=== PATIENT | female | born 1960 | race Two or more races ===

== ENCOUNTER 2020-01-05 17:24 | Inpatient (IN) | payer OTHER ==
[~2020-01-05] VITALS: Ht 167.6 cm; Wt 96.6 kg
--- NOTE | 2020-01-05 18:00 | NUR ---
dizziness, vomiting x 3 days s/p glf. was told by pmd to go to ED eval. Patient a/ox4, breathing even and unlabored, no sob noted, needs attended. Attached to the electronic device monitor.
[2020-01-05] MEDS ORDERED: ONDANSETRON HCL/PF 4 MG/2 ML VIAL ONE (18:05)
[2020-01-05] MEDS ORDERED: IV NS 0.9% 1,000 ML BAG IV ONE (18:30)
[2020-01-05] MEDS ORDERED: ONDANSETRON HCL/PF 4 MG/2 ML VIAL IVP ONE (18:30)
[2020-01-05 18:41] LABS: BASOPHILS % (AUTO) 0.4 % (0.0-2.0); EOSINOPHILS % (AUTO) 0.9 % (0.0-6.0); HEMATOCRIT 40 % (33-45); HEMOGLOBIN 13.4 g/dL (11.5-14.8); MEAN CORPUSCULAR HGB CONC 34 g/dl (31.0-36.0); MEAN CORPUSCULAR VOLUME 93 fL (82-100); MONOCYTES # (AUTO) 0.4 /CMM (0.1-1.30); MONOCYTES % (AUTO) 8.6 % (2.0-12.0); NEUTROPHILS # (AUTO) 2.5 /CMM (1.8-8.9); NEUTROPHILS % (AUTO) 50.1 % (43.0-81.0); PLATELET COUNT (AUTO) 245 /CMM (150-450); RED BLOOD CELL COUNT(AUTO) 4.24 MIL/uL (4.0-5.2); WHITE BLOOD COUNT (AUTO) 4.9 K/uL (4.3-11.0)
[2020-01-05 18:51] LABS: CALCIUM, SERUM 8.8 mg/dL (8.5-10.1); CARBON DIOXIDE 28 mmol/L (21-32); CHLORIDE 106 mmol/L (98-107); CREATININE 0.8 mg/dL (0.6-1.3); GLUCOSE 100 mg/dL (74-106); POTASSIUM 3.8 mmol/L (3.5-5.1); SODIUM SERUM 142 mmol/L (136-145); UREA NITROGEN, BLOOD 12 mg/dL (7-18)
[2020-01-05 18:58] LABS: ALANINE AMINOTRANSFERASE 24 U/L (12-78); ALKALINE PHOSPHATASE 63 U/L (46-116); ASPARTATE AMINOTRANSFERASE 17 U/L (15-37); BILIRUBIN,DIRECT 0.1 mg/dL (0.0-0.2); BILIRUBIN,TOTAL 0.3 mg/dL (0.2-1.0); TOTAL PROTEIN, SERUM 7.7 g/dL (6.4-8.2)
--- NOTE | 2020-01-05 19:22 | NUR ---
CALLED LAB SPOKE TO PAUL FOR RAPID COVID SWAB
--- NOTE | 2020-01-05 19:22 | NUR ---
REPORT GIVEN TO RANDY HAYES FOR RAHEEM.
--- NOTE | 2020-01-05 19:25 | NUR ---
RECEIVED REPORT FROM NORMAN. VITAL SIGNS TAKEN. BP- 114/66, HR- 71, RR- 18, O2 SAT 100%, BREATHING AT ROOM AIR, NO SIGNS OF DISTRESS, IV ACCESS ON LEFT AC. PATIENT IS ARMAINIAN SPEAKING.
--- NOTE | 2020-01-05 19:47 | NUR ---
COVID SWAB COLLECTED AND SENT TO LAB.
--- NOTE | 2020-01-05 20:02 | NUR ---
PATIENT COMPLAINS OF PAIN AT THE BACK OF HER HEAD AND NECK. WITH A PAIN SCALE OF 8. INFORMED DR. TAYLOR.
[2020-01-05] MEDS ORDERED: MORPHINE SULFATE INJ 4 MG/ML DISP.SYRIN ONE (20:05)
--- NOTE | 2020-01-05 20:16 | NUR ---
MORPHINE 4MG IV GIVEN. BP- 137/72, HR- 72, O2 SAT- 100%.
--- NOTE | 2020-01-05 20:28 | NUR ---
CALLED NURSING SUP FOR BED
[2020-01-05] MEDS ORDERED: ONDANSETRON HCL/PF 4 MG/2 ML VIAL IV ONE (20:30)
[2020-01-05] MEDS ORDERED: MORPHINE SULFATE INJ 2 MG/ML DISP.SYRIN IV ONE (20:30)
--- NOTE | 2020-01-05 20:48 | NUR ---
URINE COLLECTED AND SENT TO LAB.
--- NOTE | 2020-01-05 20:49 | NUR ---
PAIN SCALE IS 6. BP- 142/91, HR- 70. O2 SAT 100%.
--- NOTE | 2020-01-05 20:52 | NUR ---
BED ASSIGNMENT 200
--- NOTE | 2020-01-05 21:03 | NUR ---
ENDORSED PATIENT TO [facility] FOR CONTINUITY OF CARE.
[2020-01-05 21:12] LABS: APPEARANCE,URINE Clear (CLEAR); BILIRUBIN,URINE Negative (NEGATIVE); BLOOD, URINE Trace-intact Ery/uL (NEGATIVE); COLOR,URINE Yellow (YELLOW); KETONES,URINE Negative (NEGATIVE); LEUKOCYTE ESTERASE ,URINE Small (NEGATIVE); NITRITE, URINE Negative (NEGATIVE); PH,URINE 6.5 (5.0-8.0); PROTEIN,URINE Negative (NEGATIVE); UGLUCOSE Negative (NEGATIVE); UROBILINOGEN,URINE 0.2 EU/dL (0.2)
--- NOTE | 2020-01-05 21:30 | NUR ---
PATIENT TRANSFERED TO [facility] VIA [facility].
[2020-01-05 21:35] LABS: BACTERIA,URINE Few /HPF (None Seen); MUCUS,URINE Few /LPF (None Seen); SQUAMOUS EPITHELIAL CELL,UR Few /HPF (None Seen); URINE AMORPHOUS URATE Few /HPF (None Seen)
--- NOTE | 2020-01-05 21:40 | NUR ---
ADMISSION NOTES: RECEIVED REPORT FROM ZEN ALCAZAR RN. PT BROUGHT TO THE UNIT AT 2132 VIA GURNEY. PT A/O X4 ON RA RESPIRATIONS EVEN AND UNLABORED, IV ACCESS PATENT AND FLUSHING WELL, ON HL. VS TAKEN AND RECORDED. ORIENTED PT TO UNIT POLICY AND HOURLY ROUNDING , USE OF CALL LIGHT SYSTEM. PT ABLE TO UNDERSTAND AND SPEAK BASIC LITHUANIAN, ABLE TO MAKE NEEDS KNOWN. STILL C/O OF HEAD AND NECK PAIN 12/17. SKIN ASSESSMENT PERFORMED, NO SKIN ISSUES NOTED. ALL INTERVIEW QUESTIONS ANSWERED BY PT HERSELF, DENIES ANY MEDICATION TAKEN AT HOME. INVENTORY OF BELONGINGS COMPLETED BY JUDITH RAHMAN AND RN. PT REFUSED TO COUNT HER MONEY AND BE KEPT ON SAFE, EDUCATION PROVIDED TO PT. SAFETY PRECAUTIONS FOR FALL INITIATED, CALL LIGHT IN REACH, WILL CONTINUE MONITORING PT.
[2020-01-05 21:48] VITALS: BP 131/76
[2020-01-05] MEDS ORDERED: [UNRECOGNIZED DRUG - REMARK] (21:48)
--- NOTE | 2020-01-05 21:50 | NUR ---
RN NOTES/MD CALL: CONTACTED DR MCLEOD FOR ADMITTING ORDERS, PER MD, HOSPITALIST WILL ADMIT THE PT. INFORMED EPIC MD DR SLADE, STATED SHE WILL PUT IN ALL ORDERS FOR THE PT. ALSO INFORMED MD ABOUT PT'S C/O PAIN IN HER HEAD AND NECK.
[2020-01-05 22:00] VITALS: BP 131/76
--- NOTE | 2020-01-05 22:10 | NUR ---
RN NOTES/EPIC MD: NOTIFIED EPIC HOSPITALIST REGARDING PT'S C/O 8/10 PAIN ON HEAD AND NECK AREA, PT RECEIVED MORPHINE 2MG IVP AT 2015 IN ER. PER MD TELEPHONE ORDER RECEIVED TO ADMINISTER NORCO 5/325 MG TAB PO Q4HRS PRN FOR PAIN/MOD PAIN 4-7. MD AWARE P'S PAIN LEVEL IS 8/10. ORDERS READ BACK VERIFIED AND CARRIED OUT.
[2020-01-05] MEDS ORDERED: HYDROCODONE/APAP 5/325MG TABLET PO PRN (22:30)
--- NOTE | 2020-01-05 22:33 | NUR ---
PRN NORCO: PT C/O 8/10 PAIN ON HEAD AND NECK AREA, MD AWARE OF PT'S PAIN SCALE, PRN NORCO 5/325 MG TAB PO ADMINISTERED FOR PT'S PAIN. EDUCATE PT REGARDING MEDICATION SIDE EFFECT. WILL CONTINUE MONITORING PT.
[2020-01-05] MEDS ORDERED: MAG HYDROX/AL HYDROX/SIMETH 30 ML UDC PO PRN (23:00)
[2020-01-05] MEDS ORDERED: MAGNESIUM HYDROXIDE 30 ML UDC PO PRN (23:00)
[2020-01-05] MEDS ORDERED: ACETAMINOPHEN 325 MG TABLET PO PRN (23:00)
[2020-01-05] MEDS ORDERED: Z GUARD REMEDY 2 OZ OINT TP PRN (23:00)
[2020-01-05] MEDS ORDERED: ONDANSETRON HCL/PF 4 MG/2 ML VIAL IVP PRN (23:00)
[2020-01-05] MEDS ORDERED: ZOLPIDEM TARTRATE 5 MG TABLET PO PRN (23:00)
--- NOTE | 2020-01-05 23:30 | NUR ---
rn notes: pt complaining room is hot, contacted engineering to check room's temp/thermostat. also requested for fan from evs.
--- NOTE | 2020-01-05 23:34 | NUR ---
rn notes: obtain permission from sammie hilton regarding use of fan on room 200, pt c/o its hot in the room, current temp is 65 per engineering. engineering will bring fan for the pt. pt afebrile, no fever. temp 98.6.
[2020-01-05] MEDS: IV D5/0.45 NACL 1,000 ML IV PRN (23:39)
--- NOTE | 2020-01-05 23:43 | NUR ---
rn notes: dr brown came to see the pt. also ordered Fioricet tab 8hrs prn for sever pain 8-10 and migraine. order read back verified and carried out. per md to keep pt npo due to n/v episode, but okay to give sips of water for meds.
--- NOTE | 2020-01-05 23:46 | NUR ---
rn notes: md still in the unit, per md to do accu checks, mild sliding scale. order read back verified and carried out.
--- NOTE | 2020-01-05 23:52 | NUR ---
accu check 102: blood sugar check performed and result obtained is 102. no insulin coverage given per sliding scale.
[2020-01-06] MEDS ORDERED: DEXTROSE 50%-WATER 50 ML DISP.SYRIN IV PRN
[2020-01-06] MEDS ORDERED: BUTALB/APAP/CAFFEINE 1 EACH TABLET PO PRN
--- NOTE | 2020-01-06 00:43 | NUR ---
rn notes/epic paged: notified epic about fioricet tablet not available in any omnicel, either cunha out or showing med not issue. per md telephone order received to administer robaxin 500 po tid schedule to start now. to be administer with sips of water. order read back, verified and carried out.
[2020-01-06] MEDS: METHOCARBAMOL (500MG) 500 MG TABLET PO SCH ×4 (01:09→17:00)
[2020-01-06 02:15] VITALS: BP 133/88
[2020-01-06] MEDS: HYDROCODONE/APAP 5/325MG TABLET PO PRN ×3 (02:37→13:42)
--- NOTE | 2020-01-06 02:38 | NUR ---
prn norco: pt c/o 11/16 head and neck pain prn norco 5/325 mg 5tab po administered to pt at this time, will continue to monitor and reassess pt.
[2020-01-06] MEDS: BLOOD SUGAR DIAGNOSTIC 1 EACH STRIP IN SCH ×4 (06:26→21:40)
[2020-01-06] MEDS: IV D5/0.45 NACL 1,000 ML IV PRN ×2 (06:26→16:48)
[2020-01-06] MEDS: INSULIN REGULAR, HUMAN 100 UNIT/ML 3 ML VIAL SQ PRN ×2 (06:27→21:45)
--- NOTE | 2020-01-06 06:28 | NUR ---
accu check 98/prn norco: pt c/o head and neck pain, 11/16 requesting for pain medication. prn norco 5/325 mg tab po administered at this time. blood sugar check performed and result obtained is 98, no insulin coverage given per sliding scale.
--- NOTE | 2020-01-06 07:06 | NUR ---
End of shift report: Pt remains a/o x4, on ra, denies any sob. Pt referred to wear surgical mask and face shield. Prn norco administered for c/o head and neck pain. Pt was started on robaxin 500 mg po for muscle spasm. Remains npo per md order, iv access patent and flushing well, infusing with d5 ns at 125ml/hr, no s/s of iv infiltration noted. No episode of n/v noted throughout the shift. Vs remains stable. Needs attended. PLAN OF CARE: NEURO CONSULT WITH DR OMALLEY for possible mri brain, iv hydration, pain management. Safety precautions for fall remains engaged light in reach, will endorse to day rn for continuity of care.
[2020-01-06 07:36] LABS: BASOPHILS % (AUTO) 0.6 % (0.0-2.0); EOSINOPHILS % (AUTO) 1.8 % (0.0-6.0); HEMATOCRIT 37 % (33-45); HEMOGLOBIN 12.5 g/dL (11.5-14.8); LYMPHOCYTES % (AUTO) 53.5 % (20.0-44.0); MEAN CORPUSCULAR HGB CONC 34 g/dl (31.0-36.0); MEAN CORPUSCULAR VOLUME 94 fL (82-100); MONOCYTES # (AUTO) 0.3 /CMM (0.1-1.30); MONOCYTES % (AUTO) 8.2 % (2.0-12.0); NEUTROPHILS # (AUTO) 1.4 /CMM (1.8-8.9); NEUTROPHILS % (AUTO) 35.9 % (43.0-81.0); PLATELET COUNT (AUTO) 198 /CMM (150-450); RED BLOOD CELL COUNT(AUTO) 3.97 MIL/uL (4.0-5.2); WHITE BLOOD COUNT (AUTO) 3.8 K/uL (4.3-11.0)
[2020-01-06 07:43] LABS: CREATININE 0.7 mg/dL (0.6-1.3); MAGNESIUM 1.9 mg/dL (1.8-2.4); PHOSPHORUS 3.3 mg/dL (2.5-4.9); POTASSIUM 3.4 mmol/L (3.5-5.1)
[2020-01-06 07:55] LABS: THYROID STIMULATING HORMONE 11.041 uIU/mL (0.358-3.74)
[2020-01-06 07:58] VITALS: BP 120/71
--- NOTE | 2020-01-06 07:59 | NUR ---
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 A/O X4, vital signs within normal range for patient, no fever noted. Continue to complain of headache 12/17, medication administered as ordered. Awaitng neuro consult with Dr De La Cruz, for possible MRI. Safety measures in place, bed in low setting, side rails X2 in upright position, brakes locked. Call light within reach, will continue to monitor and ensure safety.
[2020-01-06 08:18] VITALS: BP 120/71
--- NOTE | 2020-01-06 08:30 | NUR ---
MS/fraud representative refusal Patient refused to take any of the pain medications ordered for her, stating that they do not work. Wanting to wait for neurology consult before taking anything.
--- NOTE | 2020-01-06 09:45 | NUR ---
MS/RN Dr De La Cruz Call received from Dr De La Cruz - requesting assistance with telemedicine consult, indicated to MD that we would ask automotive parts interpreter to come and translate as patient's primary language is Indian. Attendant Coin Operated Laundry at bedside, attempted to video chat with MD, but no response. Attempted twice, also tried calling via regular landline without any answer. Noted short time after order entered into computer for stat CT head. Patient informed and prepared for test.
--- NOTE | 2020-01-06 10:30 | NUR ---
MS/RN PT tristen Seen by PT - able to ambulate with standby assist using walker. Patient discharged from physical therapy.
[2020-01-06] MEDS ORDERED: MECL-159 PO (10:43)
[2020-01-06] MEDS ORDERED: OXYC30TA2 PO (10:43)
[2020-01-06] MEDS ORDERED: ALOG25TA2 PO (10:43)
[2020-01-06] MEDS ORDERED: RIVA10TA PO (10:43)
[2020-01-06] MEDS ORDERED: ALPR1TAB7 PO (10:43)
[2020-01-06] MEDS ORDERED: ROSU40TA23 PO (10:43)
[2020-01-06] MEDS ORDERED: FENO134C PO (10:43)
[2020-01-06] MEDS ORDERED: INSU100I26 SQ (10:43)
[2020-01-06] MEDS ORDERED: DOCU-270 PO (10:43)
[2020-01-06] MEDS ORDERED: ASPI-1420 PO (10:43)
[2020-01-06] MEDS ORDERED: ERGO500014 PO (10:43)
[2020-01-06] MEDS ORDERED: METO25TA20 PO (10:43)
[2020-01-06] MEDS ORDERED: OMEP40CA13 PO (10:43)
[2020-01-06] MEDS ORDERED: TIOT4MIS2 INH (10:43)
[2020-01-06] MEDS ORDERED: SITA100T PO (10:43)
[2020-01-06] MEDS ORDERED: SENN-148 PO (10:43)
--- NOTE | 2020-01-06 11:45 | NUR ---
MS/RN CT Head CT scan of head reported as dense extra axial hematoma measuring 4mm over left frontal convexity.
[2020-01-06] MEDS: POTASSIUM CL. PREMIX PERIPHER. 50 ML IV SCH ×2 (11:49→12:49)
--- NOTE | 2020-01-06 12:35 | NUR ---
MS/RN Dr Rothman Per MD - patient to remain in the hospital overnight and possible repeat CT scan in morning.
[2020-01-06 16:00] VITALS: BP 113/65
[2020-01-06 16:02] VITALS: BP 113/65
[2020-01-06] MEDS: MORPHINE SULFATE INJ 2 MG/ML DISP.SYRIN IV PRN ×2 (17:17→21:44)
--- NOTE | 2020-01-06 18:05 | NUR ---
MS/RN End note Patient resting comfortably at this time following administration of morphine 2mg, no further episodes of nausea or vomiting. IV fluids continue to infuse at 125ml/hr via left AC 20g, no signs of infiltration. For repeat CT scan head tomorrow to further evaluate 4mm hematoma on left frontal convexity. All questions and concerns addressed, family updated at patient's request to plan of care. Patient's primary contact is son Chan ([phone] Will endorse to night cleaner.
--- NOTE | 2020-01-06 19:30 | NUR ---
rn initial notes: Patient received from day shift. Pt is a/o x4, stated her pain is tolerable at this time, as she just received morphine, ps 4/10. IV access on left ac patent and flushing well, infusing with d5 1/2 ns at 125ml/hr. For repeat ct head in am. Discussed plan of care to pt. Safety measures in place, bed in low setting, side rails X2 in upright position, brakes locked. Call light within reach, will continue to monitor and ensure safety.
[2020-01-06 20:00] VITALS: BP 110/72
--- NOTE | 2020-01-06 21:00 | NUR ---
accu check 102: blood sugar check performed and result 102. no insulin coverage given per sliding scale.
--- NOTE | 2020-01-06 21:02 | NUR ---
mica hernandes: pt requesting for sleeping pill, mica hernandes 10 mg tab po administered to pt at this time. Addendum: 01/06/20 at 2139 by BRITTA FIGUEROA RN disregard above documentation, wrong entry
--- NOTE | 2020-01-06 21:05 | NUR ---
transfer of care notes: Tolerated regular diet, no episode of nausea or vomiting. Pt refused taking any of the medication pill, stated its not helping with her pain. IVF infusing at 125ml/hr via left ac. No s/s of iv infiltration noted. For repeat CT head today. Vs remains stable, no fever noted. Safety precautions for fall remains engaged, call light in reach, endorsed to [facility] rn for continuity of care.
--- NOTE | 2020-01-06 21:10 | NUR ---
TRANSFER OF CARE RECEIVE PT FROM MS 2 VIA BED ACCOMPANIED BY PRIMARY NURSE PT A/O X 4, STABLE CONDITION COMPLAIN OF PAIN LOWER BACK NON PHARMACOLOGICAL IMPLEMENTED, ALL BELONGINGS WITH THE PT. KEPT CLEAN, DRY AND COMFORTABLE.SAFETY MEASURES IN PLACE. WILL ENDORSE TO NEXT SHIFT Addendum: 01/07/20 at 0230 by CARLTON COTO RN will cont to monitor
--- NOTE | 2020-01-06 22:01 | NUR ---
transfer of care notes: No c/o abdl pain, no fever, no episode of nausea or vomiting, no prn medication administered. IVF remains infusing ns at 150ml/hr via left fa, no s/s of iv infiltration noted. Dc planning per hospitalist when pt tolerated diet, trend lipase, outpt gi follow up, pt requesting prescription for protonix upon discharge. Vs remains stable, needs attended. Safety precautions for fall remains engaged, call light in reach, endorsed to [facility] rn for continuity of care. Addendum: 01/07/20 at 0033 by BRITTA FIGUEROA RN DISREGARD ABOVE DOCUMENTATION, WRONG ENTRY
[2020-01-07] MEDS ORDERED: MORPHINE SULFATE INJ 2 MG/ML DISP.SYRIN ONE (02:03)
[2020-01-07] MEDS: IV D5/0.45 NACL 1,000 ML IV PRN (02:04)
[2020-01-07] MEDS: MORPHINE SULFATE INJ 2 MG/ML DISP.SYRIN IV PRN (02:05)
--- NOTE | 2020-01-07 06:04 | NUR ---
MS RN ASLEEP AND EASILY AWAKEN, IN NO APPARENT DISTRESS, SLEPT WELL, NEEDS ATTENDED AND ANTICIPATED, KEPT CLEAN, DRY AND COMFORTABLE AT ALL TIMES. AM CARE RENDERED, MONITORED ACCORDINGLY, PT A/O X 4, SAFETY MEASURES IN PLACE. WILL ENDORSE TO NEXT SHIFT.
[2020-01-07] MEDS: BLOOD SUGAR DIAGNOSTIC 1 EACH STRIP IN SCH ×2 (06:25→11:34)
[2020-01-07] MEDS: INSULIN REGULAR, HUMAN 100 UNIT/ML 3 ML VIAL SQ PRN (06:25)
--- NOTE | 2020-01-07 07:30 | NUR ---
RN MS NOTES PT IN BED, AWAKE, ALERT AND ORIENTED, STILL WITH COMPLAINT OF SOME PAIN TO HER NECK AND HEAD, PT ABLE TO AMBULATE TO THE BATHROOM WITH STEADY GAIT, NOT IN DISTRESS, CALL LIGHT WITHIN REACH, NEEDS ATTENDED.
[2020-01-07 07:37] LABS: CALCIUM, SERUM 8.4 mg/dL (8.5-10.1); CREATININE 0.7 mg/dL (0.6-1.3); POTASSIUM 3.7 mmol/L (3.5-5.1)
[2020-01-07 08:00] VITALS: BP 129/69
--- NOTE | 2020-01-07 08:53 | NUR ---
RN MS NOTES PT SEEN BY DR. PRIETO, DISCHARGE INSTRUCTIONS GIVEN BY , VERBALIZED UNDERSTANDING.
[2020-01-07] MEDS: METHOCARBAMOL (500MG) 500 MG TABLET PO SCH (09:29)
[2020-01-07] MEDS ORDERED: METH500T6 PO (09:54)
--- NOTE | 2020-01-07 12:15 | NUR ---
RN MS NOTES PT COMPLETED CT HEAD WITHOUT CONTRAST WITH NEGATIVE RESULTS, DISCHARGE ORDER GIVEN BY DR. PRIETO, DISCHARGE AND MEDICATION INSTRUCTIONS PROVIDED TO PT. VERBALIZED UNDERSTANDING, PT ABLE TO AMBULATE IN HER ROOM WITH STEADY GAIT, BELONGINGS ACCOUNTED FOR, ASSISTED TO WHEELCHAIR, ASSISTED TO HOSPITAL LOBBY, PICKED UP BY SON, LEFT VIA PRIVATE CAR IN STABLE CONDITION.
== END 2020-01-07 12:15 | disposition home or self-care (01) | DRG 57 ==
LOC: ER 17:28 → MEDSG2 20:57 → MED 01-06 21:10
PROVIDERS: ADMIT Student in an Organized Health Care Education/Training Program; ATTEND Internal Medicine
DX: S06.2X9A Diffuse traumatic brain injury with loss of consciousness of unspecified duration, initial encounter (principal); S13.4XXA Sprain of ligaments of cervical spine, initial encounter; Y92.9 Unspecified place or not applicable; E11.9 Type 2 diabetes mellitus without complications; G89.29 Other chronic pain; Z90.49 Acquired absence of other specified parts of digestive tract; W19.XXXA Unspecified fall, initial encounter; E03.9 Hypothyroidism, unspecified; F07.81 Postconcussional syndrome
CPT/HCPCS: 36415; 70450-TC; 80048-TC; 80061-TC; 80076-TC; 81000-TC; 82962-TC; 83735-TC; 84100-TC; 84443-TC; 84484-TC; 85025-TC; 85730-TC; 87081-TC; 87086-TC; 97116-TC; 97530-TC; C9803-CS; G0378; J1815; J2270; J2405; J3490; J7030

== ENCOUNTER 2020-01-08 13:45 | Emergency (ER) | payer OTHER ==
[~2020-01-08] VITALS: Ht 167.6 cm; Wt 93.0 kg
[~2020-01-08 13:45] MED LIST: ALOG25TA2 PO; ALPR1TAB7 PO; DOCU-270 PO; ERGO500014 PO; FENO134C PO; INSU100I26 SQ; MECL-159 PO; METH500T6 PO; METO25TA20 PO; OMEP40CA13 PO; OXYC30TA2 PO; ROSU40TA23 PO; SENN-148 PO; SITA100T PO; TIOT4MIS2 INH
--- NOTE | 2020-01-08 13:52 | NUR ---
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
--- NOTE | 2020-01-08 14:38 | NUR ---
DR BORDEN AT BEDSIDE FOR EVAL.
[2020-01-08] MEDS ORDERED: ONDANSETRON 4 MG TAB.RAPDIS ONE (14:59)
[2020-01-08] MEDS ORDERED: HYDROCODONE/APAP 5/325MG TABLET ONE (14:59)
[2020-01-08] MEDS ORDERED: ONDANSETRON 4 MG TAB.RAPDIS SL ONE (15:00)
[2020-01-08] MEDS ORDERED: HYDROCODONE/APAP 5/325MG TABLET PO ONE (15:00)
[2020-01-08 15:24] LABS: APPEARANCE,URINE Slightly Cloudy (CLEAR); BILIRUBIN,URINE Negative (NEGATIVE); BLOOD, URINE Trace-lysed Ery/uL (NEGATIVE); COLOR,URINE Yellow (YELLOW); KETONES,URINE Negative (NEGATIVE); LEUKOCYTE ESTERASE ,URINE Small (NEGATIVE); NITRITE, URINE Negative (NEGATIVE); PROTEIN,URINE Negative (NEGATIVE); UGLUCOSE Negative (NEGATIVE); UROBILINOGEN,URINE 0.2 EU/dL (0.2)
[2020-01-08 15:48] LABS: BACTERIA,URINE Few /HPF (None Seen); SQUAMOUS EPITHELIAL CELL,UR Many /HPF (None Seen)
[2020-01-08] MEDS ORDERED: KETOROLAC TROMETHAMINE INJ 30 MG/ML VIAL ONE (16:56)
[2020-01-08] MEDS ORDERED: KETOROLAC TROMETHAMINE INJ 60 MG/2 ML VIAL IM ONE (17:00)
--- NOTE | 2020-01-08 17:38 | NUR ---
Patient discharged to home in stable condition. Written and verbal after care instructions given. Patient verbalizes understanding of instruction.
[2020-01-08 17:42] VITALS: BP 124/79
== END 2020-01-08 17:51 | disposition home or self-care (01) ==
LOC: ER 13:58
DX: F07.81 Postconcussional syndrome (principal); N30.90 Cystitis, unspecified without hematuria; E11.9 Type 2 diabetes mellitus without complications; G89.29 Other chronic pain; M54.5 Low back pain; Z98.890 Other specified postprocedural states; Z79.899 Other long term (current) drug therapy; Z79.4 Long term (current) use of insulin; Z79.82 Long term (current) use of aspirin
CPT/HCPCS: 81001; 87086; 96372; 99283; J1885; Q0162; 81000-TC

== ENCOUNTER 2021-08-11 11:00 | Emergency (ER) | payer OTHER ==
[~2021-08-11] VITALS: Ht 157.5 cm; Wt 96.2 kg
[~2021-08-11 11:00] MED LIST changes: -ERGO500014 PO; +ERGO500093 PO; -OMEP40CA13 PO; +OMEP40CA21 PO
--- NOTE | 2021-08-11 11:14 | NUR ---
ASSISTED TO ER 09; URINE SAMPLE REQUESTED - THE PATIENT IS ABLE TO GIVE URINE SAMPLE ASSISTED BY THE PARQUETRY LAYER - TO THE BATHROOM
--- NOTE | 2021-08-11 11:16 | NUR ---
URINE COLLECTED AND SENT
--- NOTE | 2021-08-11 11:18 | NUR ---
CHANGED INTO HOSPITAL GOWN, PT ATTACHED TO MONITOR, WARM BLNAKET PROVIDED FOR COMFORT.
--- NOTE | 2021-08-11 11:21 | NUR ---
IV ESTABLISHED L AC 20G. LABS COLLECTED AND DRAWN AT BEDSIDE. CONVERTED TO SALINE LOCK.
[2021-08-11] MEDS ORDERED: KETOROLAC TROMETHAMINE INJ 30 MG/ML VIAL IV ONE (11:30)
[2021-08-11] MEDS ORDERED: ONDANSETRON HCL/PF 4 MG/2 ML VIAL IVP ONE (11:30)
[2021-08-11] MEDS ORDERED: MORPHINE SULFATE INJ 2 MG/ML DISP.SYRIN IV ONE (11:30)
[2021-08-11] MEDS ORDERED: ONDANSETRON HCL/PF 4 MG/2 ML VIAL ONE (11:31)
[2021-08-11] MEDS ORDERED: KETOROLAC TROMETHAMINE 15 MG/ML VIAL ONE (11:31)
[2021-08-11] MEDS ORDERED: MORPHINE SULFATE INJ 2 MG/ML DISP.SYRIN ONE (11:31)
[2021-08-11 12:13] LABS: BASOPHILS % (AUTO) 0.9 % (0.0-2.0); EOSINOPHILS % (AUTO) 0.8 % (0.0-6.0); HEMATOCRIT 39 % (33-45); HEMOGLOBIN 13.3 g/dL (11.5-14.8); LYMPHOCYTES # (AUTO) 2.3 K/uL (0.8-4.8); LYMPHOCYTES % (AUTO) 49.4 % (20.0-44.0); MEAN CORPUSCULAR HGB CONC 34 g/dl (31.0-36.0); MEAN CORPUSCULAR VOLUME 92 fL (82-100); MONOCYTES # (AUTO) 0.4 K/uL (0.1-1.30); MONOCYTES % (AUTO) 8.2 % (2.0-12.0); NEUTROPHILS # (AUTO) 1.9 K/uL (1.8-8.9); NEUTROPHILS % (AUTO) 40.7 % (43.0-81.0); PLATELET COUNT (AUTO) 223 K/uL (150-450); RED BLOOD CELL COUNT(AUTO) 4.27 MIL/uL (4.0-5.2); WHITE BLOOD COUNT (AUTO) 4.7 K/uL (4.3-11.0)
--- NOTE | 2021-08-11 12:25 | NUR ---
PT TAKEN TO CT VIA MIGUEL
[2021-08-11 12:27] LABS: CALCIUM, SERUM 8.6 mg/dL (8.5-10.1); CREATININE 0.7 mg/dL (0.6-1.3); POTASSIUM 4.4 mmol/L (3.5-5.1)
[2021-08-11 12:33] LABS: ALBUMIN 3.6 g/dL (3.4-5.0); BILIRUBIN,DIRECT 0.1 mg/dL (0.0-0.2); BILIRUBIN,TOTAL 0.4 mg/dL (0.2-1.0); TOTAL PROTEIN, SERUM 7.2 g/dL (6.4-8.2)
[2021-08-11 12:50] LABS: BILIRUBIN,URINE NEGATIVE (NEGATIVE); COLOR,URINE YELLOW (YELLOW); LEUKOCYTE ESTERASE ,URINE MODERATE (NEGATIVE); NITRITE, URINE NEGATIVE (NEGATIVE); PROTEIN,URINE NEGATIVE (NEGATIVE); UGLUCOSE NEGATIVE (NEGATIVE); UROBILINOGEN,URINE 0.2 EU/dL (0.2)
[2021-08-11] MEDS ORDERED: NITR100C6 PO (13:05)
[2021-08-11 13:18] LABS: RBC,URINE 0-2 /HPF (0-2)
[2021-08-11 13:19] LABS: BACTERIA,URINE Moderate /HPF (None Seen); SQUAMOUS EPITHELIAL CELL,UR Moderate /HPF (None Seen)
[2021-08-11 13:23] VITALS: BP 125/80
--- NOTE | 2021-08-11 13:23 | NUR ---
IV removed. Catheter intact and site benign. Pressure and 4x4 applied to site. No bleeding noted.Patient discharged to home in stable condition. Written and verbal after care instructions given. Patient verbalizes understanding of instruction.
== END 2021-08-11 13:24 | disposition home or self-care (01) ==
LOC: ER 11:03
DX: N39.0 Urinary tract infection, site not specified (principal); E11.9 Type 2 diabetes mellitus without complications; Z79.4 Long term (current) use of insulin; Z79.891 Long term (current) use of opiate analgesic; Z79.899 Other long term (current) drug therapy
CPT/HCPCS: 36415; 74176; 80048; 80076; 81001; 83690; 85025; 87086; 96374; 96375; 99284; J1885; J2270; J2405